=== PATIENT | male | born 1950 ===

== ENCOUNTER 2018-07-08 02:03 | Emergency (ER) | payer OTHER ==
[2018-07-08 03:11] VITALS: BMI 33.5
[2018-07-08 03:14] VITALS: TEMP 98
[2018-07-08 03:45] LABS: HEMOGLOBIN 14.5 g/dL (12.0-18.0); MEAN CELL VOLUME 86.5 fl (80.0-94.0); MEAN CORPUSCULAR HEMOGLOBIN 29.3 pg (27.0-31.0); MEAN CORPUSCULAR HGB CONC 33.9 g/dL (33.0-37.0); RBC 4.93 Mil/uL (4.40-5.90); RED CELL DISTRIBUTION WIDTH 14.9 % (11.5-14.5)
[2018-07-08 03:50] LABS: BLOOD UREA NITROGEN 23 mg/dl (9-20); CALCIUM 9.8 mg/dL (8.4-10.2); GFR NON-AFRICAN AMERICAN > 60
--- NOTE | 2018-07-08 03:59 | ED PDOC ---
Syncope/Near Syncope/Dizziness Time Seen by Provider: 07/08/18 03:15 Chief Complaint (Nursing): Dizziness/Lightheaded Chief Complaint (Provider): Dizziness/Lightheaded History Per: Patient History/Exam Limitations: no limitations Current Symptoms Are (Timing): Still Present Additional Complaint(s): 68 year old male, with a past medical history of diabetes and HTN, presents to the ED complaining of dizziness and sweating. 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 Denies CP or SOB. He states when he came to the ED, he felt better in the air conditioning. No symptoms presenting right now in the ED and patient feels well. PMD: Dr. Townsend Past Medical History Reviewed: Historical Data, Nursing Documentation, Vital Signs Vital Signs: Last Vital Signs Temp 98.0 F 07/08/18 03:11 Pulse 65 07/08/18 03:11 Resp 16 07/08/18 03:11 BP 118/75 07/08/18 03:11 Pulse Ox 97 07/08/18 03:11 - Medical History PMH: Diabetes, HTN - Surgical History Surgical History: No Surg Hx - Family History Family History: States: Unknown Family Hx - Social History Current smoker - smoking cessation education provided: No Alcohol: None Drugs: Denies - Allergies Allergies/Adverse Reactions: Allergies Allergy/AdvReac Type Severity Reaction Status Date / Time No Known Allergies Allergy Verified 07/08/18 03:11 Review of Systems ROS Statement: Except As Marked, All Systems Reviewed And Found Negative Cardiovascular: Negative for: Chest Pain Respiratory: Negative for: Shortness of Breath Skin: Positive for: Other (Sweating) Neurological: Positive for: Dizziness Physical Exam - Reviewed Nursing Documentation Reviewed: Yes Vital Signs Reviewed: Yes - Physical Exam Appears: Positive for: Non-toxic, No Acute Distress Head Exam: Positive for: ATRAUMATIC, NORMOCEPHALIC Skin: Positive for: Normal Color, Warm, Dry Eye Exam: Positive for: Normal appearance Neck: Positive for: Normal, Painless ROM Cardiovascular/Chest: Positive for: Regular Rate, Rhythm. Negative for: Murmur Respiratory: Positive for: Normal Breath Sounds. Negative for: Wheezing, Respiratory Distress Extremity: Positive for: Normal ROM Neurologic/Psych: Positive for: Alert, Oriented. Negative for: Motor/Sensory Deficits - Laboratory Results Result Diagrams: 07/08/18 03:30 07/08/18 03:30 - ECG O2 Sat by Pulse Oximetry: 97 (RA) Pulse Ox Interpretation: Normal Medical Decision Making Medical Decision Making: Initial Impression: Well appearing patient presenting with resolved dizziness and sweating. Initial Plan: --ECG --BMP --Troponin --CBC --Accucheck Vitals stable and patient has a left bundle block on EKG. Will check troponin and blood work and will reevaluate for discharge. 610 Workup negative Patient feeling well, appearing very well Advised to followup with PMD Scribe Attestation: Documented by Lucien Alford acting as a scribe for Luciano Roque MD. Provider Scribe Attestation: All medical record entries made by the Scribe were at my direction and personally dictated by me. I have reviewed the chart and agree that the record accurately reflects my personal performance of the history, physical exam, medical decision making, and the department course for this patient. I have also personally directed, reviewed, and agree with the discharge instructions and disposition. Disposition - Clinical Impression Clinical Impression: Dizzy spells - Disposition Referrals: Mainor Townsend [Family Provider] - Disposition Time: 06:10 Condition: STABLE Instructions: Dizziness, Nonvertigo, (DC) Forms: [employer] (Urdu) Print Language: GAMBIAN
[2018-07-08 06:14] VITALS: BP 128/71; PULSE 72; RESP 18
--- NOTE | 2018-07-08 13:19 | CARD ---
APPROVED REPORT Date of service: 07/08/2018 EKG Measurement Heart [id number] <Conclusion> Normal sinus rhythm Left axis deviation Left bundle branch block Abnormal ECG
[2018-07-15 04:09] VITALS: O2SAT 97
== END 2018-07-08 06:13 | disposition home or self-care (01) ==
LOC: H.ER 02:03
DX: R42 Dizziness and giddiness (principal); I10 Essential (primary) hypertension; E11.9 Type 2 diabetes mellitus without complications